=== PATIENT | male | born 1990 | race African-American/Black ===

== ENCOUNTER 2017-05-22 10:45 | Emergency (ER) | payer OTHER ==
[~2017-05-22] VITALS: Ht 175.3 cm; Wt 72.1 kg
[2017-05-22] MEDS ORDERED: ALBU8.5H2 INH (10:47)
[2017-05-22] MEDS ORDERED: predniSONE 20 MG TABLET ONE (10:59)
[2017-05-22] MEDS ORDERED: predniSONE 20 MG TABLET PO ONE (11:00)
[2017-05-22] MEDS ORDERED: IPRATROPIUM NEB FS 0.5 MG/2.5 ML AMPUL.NEB NEB ONE (11:00)
[2017-05-22] MEDS ORDERED: ALBUTEROL FS 2.5 MG/3 ML VIAL.NEB NEB ONE (11:00)
--- NOTE | 2017-05-22 11:00 | NUR ---
NORBERTO 76 FROM HOME, WORSENING SOB, NO RELIEF WITH INHALER. SEEN BY FOR EVAL. HERNANDEZ AT 89 RA. IV ACCESS NEONATAL CRITICAL CARE NURSE. SAFETY AND COMFORT MEASURES PROVIDED. WILL MONITOR.
[2017-05-22] MEDS ORDERED: IPRATROPIUM NEB FS 0.5 MG/2.5 ML AMPUL.NEB ONE (11:03)
[2017-05-22] MEDS ORDERED: ALBUTEROL FS 2.5 MG/3 ML VIAL.NEB ONE (11:03)
--- NOTE | 2017-05-22 12:29 | NUR ---
Patient discharged to home in stable condition. Written and verbal after care instructions given. Patient verbalizes understanding of instruction.
[2017-05-22 12:33] VITALS: BP 112/74
== END 2017-05-22 12:33 | disposition home or self-care (01) ==
LOC: ER 10:47
DX: J45.909 Unspecified asthma, uncomplicated (principal); F17.200 Nicotine dependence, unspecified, uncomplicated
CPT/HCPCS: 94640; 99283; 99406; A4606; J7512; Z7610